=== PATIENT | female | born 1950 | race African-American/Black ===

== ENCOUNTER 2017-01-24 23:06 | Emergency (ER) | payer MEDICARE, MEDICAID ==
[~2017-01-24] VITALS: Ht 149.9 cm; Wt 45.8 kg
[~2017-01-24 23:06] MED LIST: ACID1TAB5 PO; ALEN70TA47 PO; ASPI-84 PO; CALC600T25 PO; CARB200T48 PO; CARB200T6 PO; CEPH500C PO; DICY20TA10 PO; DOCU100C PO; EMOL177L7 TP; FERR-57 PO; FERR-74 PO; FRSM40T PO; FURO20TA4 PO; GLIM2TAB PO; GLPZ5TCR PO; LEVE250T5 PO; LEVE500S PO; LEVO500T69 PO; LISI5TAB PO; LVT.025T PO; MAGN400C PO; METF500S PO; METF500T8 PO; METH850P3 PO; MIRT15TA6 PO; MIRT7.5T8 PO; NF-CARBAMX PO; NF-ESOM40C PO; OMEP20CA12 PO; PNV1TABL74 PO; POTA10CA43 PO; POTA10TA36 PO; SIMV80TA3 PO; TRIA1CAP4 PO; [UNRECOGNIZED DRUG - CODE] PO
--- OUTSIDE RECORDS SUMMARY | 2017-01-24 23:13 | XMS REPORT | Continuity of Care Document ---
Author Author [facility] Organization [facility] Address Unknown Phone Unavailable Care Team Providers Care Rn Night Name Role Phone [facility] OF PCP Insurance Providers Payer Name Policy Number Subscriber Name Relationship [employer] [id number] TrudyRosalinda newell 20 Self / Same As Patient [facility] [id number] TrudyRosalinda newell 20 Self / Same As Patient Advance Directives Directive Response Recorded Date/Time Advance Directives No 06/21/15 2:55pm Health Care Power of [place] [employer] Y GUARDIAN--GERSON RAMIREZ 06/21/15 2:55pm Organ Donor No 06/21/15 2:55pm Resuscitation Status Full Code 06/21/15 2:55pm Problems Medical Problems Problem Onset Date Status Pedal edema Unknown Active Pedal edema Unknown Active Head injury, acute, without loss of consciousness Unknown Active Scalp laceration Unknown Active Contusion Unknown Active Urinary tract infection Unknown Active Urinary tract infection Unknown Active Urinary tract infection Unknown Active Dehydration Unknown Active Medications Medication Dose Route Sig Days/Qty Instructions Order Date Discontinued Date Status Alendronate Sodium 70 Mg PO WEEKLY 08/10/11 Active Carbamazepine 100 Mg PO DAILY 08/10/11 04/13/14 Discontinued Carbamazepine 200 Mg PO THREE TIMES A DAY 08/10/11 Active Calcium Carbonate 600 Mg PO TWICE A DAY 08/10/11 Active Docusate Sodium 100 Mg PO TWICE A DAY 08/10/11 Active Simvastatin 80 Mg PO BEDTIME 08/10/11 Active Glipizide 5 Mg PO TWICE A DAY 08/10/11 12/15/12 Discontinued Aspirin 81 Mg PO DAILY 08/10/11 Active Levothyroxine Sodium 25 Mcg PO DAILY 08/10/11 Active Potassium Chloride 10 Meq PO TWICE A DAY 08/10/11 04/13/14 Discontinued Triamterene/Hydrochlorothiazid 1 Tab PO DAILY 08/10/11 04/13/14 Discontinued Glimepiride 2 Mg PO noon 12/15/12 04/13/14 Discontinued Magnesium Oxide 400 Mg PO TWICE A DAY 5 Qty 12/15/12 04/13/14 Discontinued Metformin HCl (Glucophage Xr) 1 Each PO DAILY WITH MEAL 04/13/14 Active Lisinopril 5 Mg PO DAILY 04/13/14 Active Omeprazole 20 Mg PO DAILY 04/13/14 Active Ferrous Sulfate 325 Mg PO TWICE A DAY 04/13/14 Active Levofloxacin 1 Each PO DAILY 04/13/14 Active Acidophilus 1 Each PO TWICE A DAY 04/13/14 Active Furosemide 40 Mg PO DAILY 30 Days 04/14/14 Active Potassium Chloride (Micro K) 1 Each PO DAILY WITH FOOD 30 Days Active Furosemide 40 Mg PO DAILY 30 Days 04/14/14 Active Furosemide (Lasix) 1 Each PO DAILY 14 Qty 06/27/14 Active Potassium Chloride (Micro K) 1 Each PO DAILY WITH FOOD 14 Qty 06/27/14 Active Cephalexin Monohydrate (Keflex) 1 Each PO THREE TIMES A DAY 21 Qty 01/13 Active Social History Social History Problem Response Recorded Date/Time Alcohol Use Denies Use 06/21/2015 2:55pm Recreational Drug Use No 06/21/2015 2:55pm Recent Foreign Travel No 06/21/2015 2:55pm Recent Infectious Disease Exposure No 06/21/2015 2:55pm Hospitalization with Isolation Denies 06/21/2015 2:55pm Smoking Status Never a Smoker 06/21/2015 2:55pm Query Response Start Date Stop Date Smoking Status Never a Smoker Hospital Discharge Instructions No hospital discharge instructions. Plan of Care No plan of care. Functional Status Query Response Date Recorded Patient Orientation MR June 21, 2015 2:55pm Comprehension Ability Unable to Comprehend June 21, 2015 2:55pm Allergies, Adverse Reactions, Alerts Allergen Type Severity Reaction Status Last Updated sertraline ([id number]) Allergy Unknown Active 02/23/14 SSRI'S Adverse Reaction Intermediate Active 02/10/12 Immunizations Name Given Type Date of Influenza Vaccine 08/29/14 Historical Tetanus Booster (TDap) Unknown Historical Vital Signs Acute Vital Signs Vital Response Date/Time Temperature (Fahrenheit) 97.1 degrees F (97.6 - 99.5) Temperature (Calculated Celsius) 36.45253 degrees C (36.4 - 37.5) Pulse Rate (adult) 80 bpm (60 - 90) Respiratory Rate 20 bpm (12 - 24) O2 Sat by Pulse Oximetry 98 % (88 - 100) Blood Pressure 81/53 mm Hg Blood Pressure Mean 62 mm Hg Pain Pain Intensity 0 Height (Feet) 5 feet Height (Inches) 0 inches Height (Calculated Centimeters) 152.108490 cm Weight (Pounds) 80 pounds Weight (Calculated Kilograms) 36.775052 kilograms Calculated BMI 15.62 Results Laboratory Results Test Name Result Units Flags Reference Collection Date/Time Result Date/ Time Comments White Blood Count 5.4 10^3/uL 4.3-11.0 06/21/2015 3:pm 06/21/2015 3: 36pm Red Blood Count 3.41 10^6/uL L 4.35-5.85 06/21/2015 3:pm 06/21/2015 3: 36pm Hemoglobin 11.1 G/DL L 11.5-16.0 06/21/2015 3:pm 06/21/2015 3:36pm Hematocrit 32 % L 35-52 06/21/2015 3:06/21/2015 3:36pm Mean Corpuscular Volume 94 FL 80-99 06/21/2015 3:06/21/2015 3: 36pm Mean Corpuscular Hemoglobin 33 PG 25-34 06/21/2015 3:pm 06/21/2015 3: 36pm Mean Corpuscular Hemoglobin Concent 35 G/DL 32-36 06/21/2015 3:pm 3:36pm Red Cell Distribution Width 12.2 % 10.0-14.5 06/21/2015 3:pm 2014 3:36pm Platelet Count 121 10^3/uL L 130-400 06/21/2015 3:06/21/2015 3:36pm Mean Platelet Volume 9.3 FL 7.4-10.4 06/21/2015 3:06/21/2015 3: 36pm Neutrophils (%) (Auto) 49 % 42-75 06/21/2015 3:06/21/2015 3:36pm Lymphocytes (%) (Auto) 36 % 12-44 06/21/2015 3:06/21/2015 3:36pm Monocytes (%) (Auto) 10 % 0-12 06/21/2015 3:06/21/2015 3:36pm Eosinophils (%) (Auto) 5 % 0-10 06/21/2015 3:06/21/2015 3:36pm Basophils (%) (Auto) 0 % 0-10 06/21/2015 3:06/21/2015 3:36pm Neutrophils # (Auto) 2.6 X 10^3 1.8-7.8 06/21/2015 3:06/21/2015 3: 36pm Lymphocytes # (Auto) 1.9 X 10^3 1.0-4.0 06/21/2015 3:06/21/2015 3: 36pm Monocytes # (Auto) 0.5 X 10^3 0.0-1.0 06/21/2015 3:06/21/2015 3: 36pm Eosinophils # (Auto) 0.3 10^3/uL 0.0-0.3 06/21/2015 3:06/21/2015 3 :36pm Basophils # (Auto) 0.0 10^3/uL 0.0-0.1 06/21/2015 3:06/21/2015 3: 36pm Urine Color YELLOW 06/21/2015 3:06/21/2015 3:44pm Urine Clarity CLEAR 06/21/2015 3:06/21/2015 3:44pm Urine pH 5 5-9 06/21/2015 3:06/21/2015 3:44pm Urine Specific [place] 1.010 * 1.016-1.022 06/21/2015 3:2014 3:44pm Urine Protein NEGATIVE NEGATIVE 06/21/2015 3:06/21/2015 3:44pm Urine Glucose (UA) NEGATIVE NEGATIVE 06/21/2015 3:pm 06/21/2015 3: 44pm Urine RBC (Auto) NEGATIVE NEGATIVE 06/21/2015 3:pm 06/21/2015 3: 44pm Urine Ketones NEGATIVE NEGATIVE 06/21/2015 3:29pm 06/21/2015 3:44pm Urine Nitrite NEGATIVE NEGATIVE 06/21/2015 3:29pm 06/21/2015 3:44pm Urine Bilirubin NEGATIVE NEGATIVE 06/21/2015 3:pm 06/21/2015 3: 44pm Urine Urobilinogen NORMAL MG/DL NORMAL 06/21/2015 3:29pm 06/21/2015 3: 44pm Urine Leukocyte Esterase 1+ * NEGATIVE 06/21/2015 3:06/21/2015 3: 44pm Urine RBC NONE /HPF 06/21/2015 3:pm 06/21/2015 3:44pm Urine WBC 0-2 /HPF 06/21/2015 3:29pm 06/21/2015 3:44pm Urine Bacteria NEGATIVE /HPF 06/21/2015 3:pm 06/21/2015 3:44pm Urine Squamous Epithelial Cells 10-25 /HPF * 06/21/2015 3:pm 2014 3:44pm Urine Crystals NONE /LPF 06/21/2015 3:pm 06/21/2015 3:44pm Urine Casts NONE /LPF 06/21/2015 3:pm 06/21/2015 3:44pm Urine Mucus NEGATIVE /LPF 06/21/2015 3:pm 06/21/2015 3:44pm Urine Culture Indicated NO 06/21/2015 3:06/21/2015 3:44pm Sodium Level 136 MMOL/L 135-145 06/21/2015 3:pm 06/21/2015 3:53pm Potassium Level 5.0 MMOL/L 3.6-5.0 06/21/2015 3:06/21/2015 3:53pm Chloride Level 101 MMOL/L 98-107 06/21/2015 3:29pm 06/21/2015 3:53pm Carbon Dioxide Level 25 MMOL/L 21-06/21/2015 3:29pm 06/21/2015 3: 53pm Anion Gap 10 MMOL/L 5-14 06/21/2015 3:06/21/2015 3:53pm Blood Urea Nitrogen 34 MG/DL H 7-18 06/21/2015 3:29pm 06/21/2015 3:53pm Creatinine 1.66 MG/DL H 0.60-1.30 06/21/2015 3:29pm 06/21/2015 3:53pm BUN/Creatinine Ratio 20 06/21/2015 3:29pm 06/21/2015 3:53pm Estimat Glomerular Filtration Rate 38 06/21/2015 3:06/21/2015 3:53pm GFR INTERPRETIVE DATA UNITS FOR ESTIMATED GFR (eGFR): mL/min/1.73 M2 REFERENCE RANGE FOR ESTIMATED GFR (eGFR) eGFR NORMAL eGFR >60 MODERATELY DECREASED eGFR 30-59 SEVERLY DECREASED eGFR 15-29 KIDNEY FAILURE <15 (OR DIALYSIS) Glucose Level 148 MG/DL H 70-105 06/21/2015 3:29pm 06/21/2015 3:53pm Calcium Level 9.5 MG/DL 8.5-10.1 06/21/2015 3:pm 06/21/2015 3:53pm Carbamazepine (Tegretol) Level 10.8 UG/ML 4.0-12.0 06/21/2015 3:pm 4:01pm Procedures No known history of procedures. Encounters Encounter Location Date/Time Departed Emergency Room Via [facility] 06/21/15 3:01pm Recent Diagnosis
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
[2017-01-25] MEDS ORDERED: RX-OSELTAMIVIR 75 MG (TAMIFLU) BOX OF 10 PO ONE (00:54)
[2017-01-25] MEDS ORDERED: GUAI-818 PO (00:56)
[2017-01-25 00:58] VITALS: BP 138/60
--- NOTE | 2017-01-25 08:27 | Diagnostic Imaging Report ---
2 views of the chest. INDICATION: Cough. Patient has mental retardation. COMPARISON: 08/02/2015. FINDINGS: Increased opacity over the right lower lung is probably related to soft tissue superimposition with no definitive underlying infiltrate. Patient position, however, is less than optimal with patient's arm superimposed over the chest in both views. The heart size is normal. No effusion or pneumothorax. The mediastinum and ghislaine appear unremarkable. There is an infusion port with the tip at the upper right atrium level. IMPRESSION: Suboptimal study with no definite acute abnormality. Dictated by: Dictated on workstation # [id number]
[2017-01-25] MEDS ORDERED: OSELTAMIVIR 75 MG (TAMIFLU) BOX OF 10 PO SCH (09:00)
== END 2017-01-25 00:58 | disposition home or self-care (01) ==
LOC: EDUNIT# 23:06 → ER 23:09
DX: J09.X2 Influenza due to identified novel influenza A virus with other respiratory manifestations (principal); I10 Essential (primary) hypertension; E11.9 Type 2 diabetes mellitus without complications; F73 Profound intellectual disabilities; Z79.82 Long term (current) use of aspirin; Z79.84 Long term (current) use of oral hypoglycemic drugs; Z79.899 Other long term (current) drug therapy
CPT/HCPCS: 71020; 87804; 99282

== ENCOUNTER → 2019-01-10 | Outpatient (CLI) | payer MEDICARE, MEDICAID ==
[~2019-01-10] MED LIST changes: +CEPH-507 PO; +ERGO50006 PO; +FERR-65 PO; -FERR-74 PO; +FERR325T18 PO; +GUAI-818 PO; -LEVE500S PO; +LEVE500S9 PO; +METF-478 PO; +METO5TAB6 PO; +MINE30LO TP; +NUT.237L30 PO
--- NOTE | 2019-01-10 13:55 | Diagnostic Imaging Report ---
INDICATION: Postmenopausal screening for osteoporosis COMPARISON: 01/09/2011 FINDINGS: AP Spine L1-L4: [BMD (g/cm2): 1.198] [T-Score: 0.0] [Z-Score: 2.4] [BMD Previous: 1.335] [BMD % Change: -10.3] LT Hip Neck: [BMD (g/cm2): 0.714] [T-Score: -2.3] [Z-Score: -0.3] LT Hip Total: [BMD (g/cm2):0.735] [T-Score:-2.2] [Z-Score: -0.3] [BMD Previous: 0.799] [BMD % Change: NA] RT Hip Neck: [BMD (g/cm2):0.780] [T-Score:-2.3] [Z-Score:-0.3] RT Hip Total: [BMD (g/cm2):0.780] [T-score:-1.8] [Z-Score:0.1] [BMD Previous:0.791] [BMD % Change:NA] *Indicates significant change from prior examination based on 95% confidence level. World Health Organization criteria for BMD interpretation classify patients as Normal (T-score at or above -1.0), Osteopenic (T-score between -1.0 and -2.5) or Osteoporotic (T-score at or below -2.5). LIMITATIONS AND MODIFICATION: None. FRACTURE RISK (FRAX SCORE): The ten year probability of (%): Major Osteoporotic Fracture: [10] Hip Fracture: [2.2] IMPRESSION: 1. Osteopenia (Low bone mass). 2. Bone Mineral density has decreased by a statistically significant amount, as detailed above. 3. See below National Osteoporosis Foundation guidelines on when to potentially initiate pharmacologic therapy. Based on the National Osteoporosis Foundation Guidelines, pharmacologic treatment should be initiated in any of the following, unless clinical conditions suggest otherwise: * Any patient with prior fragility fracture of the hip or vertebrae. A spine fracture indicates 5X risk for subsequent spine fracture and 2X risk for subsequent hip fracture. * Osteoporosis (T-score <-2.5). * Postmenopausal women and men age 50 and older with low bone mass/osteopenia (T-score between -1.0 and -2.5) by DXA and 10-year major osteoporotic fracture greater than 20% or a 10-year probability of hip fracture greater than 3%. These fracture risks are supplied above in the FRAX score, if applicable. * Clinician judgement and/or patient preferences may indicate treatment for people with 10-year fracture probabilities above or below these levels. Dictated by: Dictated on workstation # [id number]
== END ==
LOC: RAD 10:32
PROVIDERS: ATTEND Nurse Practitioner Community Health
DX: Z13.820 Encounter for screening for osteoporosis (principal); M85.89 Other specified disorders of bone density and structure, multiple sites; Z78.0 Asymptomatic menopausal state
CPT/HCPCS: 77080

== ENCOUNTER → 2021-04-15 | Outpatient (CLI) | payer MEDICARE, MEDICAID ==
--- NOTE | 2021-04-15 14:01 | Diagnostic Imaging Report ---
Indication: Back pain Thoracic spine AP and lateral views of the thoracic spine shows normal vertebral body height and alignment. Disc spaces are well-maintained. There is minimal spondylosis with small osteophytes forming. Primarily in the upper thoracic region. IMPRESSION: Mild spondylosis. No acute abnormality seen in the thoracic spine. Dictated by: Dictated on workstation # [id number]
== END ==
LOC: RAD 13:01
PROVIDERS: ATTEND Family Medicine
DX: M47.816 Spondylosis without myelopathy or radiculopathy, lumbar region (principal)
CPT/HCPCS: 72072

== ENCOUNTER → 2022-03-16 | Outpatient (CLI) | payer OTHER, MEDICARE, MEDICAID ==
[~2022-03-16] MED LIST changes: +DICY20TA PO; -DICY20TA10 PO; +MIRT-68 PO; -MIRT15TA6 PO; -POTA10TA36 PO; +POTA10TA37 PO
[2022-03-16 07:45] LABS: CHOLESTEROL 166 MG/DL (< 200); HDL CHOLESTEROL 55 MG/DL (40-60); TRIGLYCERIDES 76 MG/DL (<150); VLDL CHOLESTEROL 15 MG/DL (5-40)
== END ==
LOC: LABNPT 07:14
PROVIDERS: ATTEND Internal Medicine
DX: Z01.89 Encounter for other specified special examinations (principal)
CPT/HCPCS: 80061